=== PATIENT | female | born 1940 | race Caucasian/White ===

== ENCOUNTER 2025-04-15 10:57 | Outpatient (CLI) | payer MEDICARE, OTHER, SELFPAY | END 2025-04-15 10:58 | disposition home or self-care (01) | LOC: MOBLMAM 11:12 | PROVIDERS: PCP Nurse Practitioner; Visit Provider Nurse Practitioner | DX: Z12.31 Encounter for screening mammogram for malignant neoplasm of breast (principal) | CPT/HCPCS: 77063; 77067 ==